=== PATIENT | male | born 1980 | race Caucasian/White ===

== ENCOUNTER 2017-01-30 04:11 | Emergency (ER) | payer OTHER, MEDICAID ==
[~2017-01-30] VITALS: Ht 170.2 cm; Wt 75.0 kg
[2017-01-30 04:11] VITALS: BP 141/94
== END 2017-01-30 04:24 | disposition left against medical advice (07) ==
LOC: ER 04:11
DX: R07.81 Pleurodynia (principal); Z53.21 Procedure and treatment not carried out due to patient leaving prior to being seen by health care provider

== ENCOUNTER 2020-08-13 20:38 | Emergency (ER) | payer MEDICARE, MEDICAID ==
[~2020-08-13] VITALS: Ht 170.2 cm; Wt 70.0 kg
[2020-08-13] MEDS ORDERED: TRAMADOL 50MG TABLET PO ONE (21:15)
[2020-08-13] MEDS ORDERED: IBUP-2029 MT (21:52)
[2020-08-13 22:27] VITALS: BP 135/76
== END 2020-08-13 22:46 | disposition home or self-care (01) ==
LOC: ER 20:38
DX: M25.532 Pain in left wrist (principal); J45.909 Unspecified asthma, uncomplicated; I10 Essential (primary) hypertension; Z86.59 Personal history of other mental and behavioral disorders
CPT/HCPCS: 29125; 73110; 99283

== ENCOUNTER 2022-02-01 13:12 | Emergency (ER) | payer MEDICARE, MEDICAID ==
[~2022-02-01] VITALS: Ht 170.2 cm; Wt 77.0 kg
[~2022-02-01 13:12] MED LIST: IBUP-2029 MT
[2022-02-01 13:18] VITALS: BP 124/69
== END 2022-02-01 14:47 | disposition left against medical advice (07) ==
LOC: ER 13:12
DX: Z53.21 Procedure and treatment not carried out due to patient leaving prior to being seen by health care provider (principal)

== ENCOUNTER 2022-06-15 18:31 | Emergency (ER) | payer MEDICARE, OTHER ==
[~2022-06-15] VITALS: Ht 170.2 cm; Wt 70.0 kg
[2022-06-15 18:33] VITALS: BP 149/102
[2022-06-15] MEDS ORDERED: DIVALPROEX SODIUM 250MG ER TABLET PO SCH (19:30)
[2022-06-15 19:53] LABS: BASOPHILS % 0.5 % (0.0-2.0); EOSINOPHILS % 4.5 % (0.0-5.0); HEMATOCRIT. 43.6 % (42.0-52.0); HEMOGLOBIN. 14.9 g/dL (14.0-18.0); LYMPHOCYTES % 27.6 % (20.0-50.0); MEAN CORPUSCULAR VOLUME 90.5 fL (80.0-94.0); MEAN PLATELET VOLUME 8.7 fl (7.4-10.4); MONOCYTES % 8.3 % (2.0-8.0); NEUTROPHILS % 59.1 % (40.0-76.0); PLATELET 243 x1000/uL (130-400); RED BLOOD CELL COUNT 4.82 mill/uL (4.7-6.1); RED CELL DISTRIBUTION WIDTH 13.6 % (11.6-14.6)
[2022-06-15 19:57] LABS: CHLORIDE 112 mEq/L (98-107)
[2022-06-15 20:04] LABS: CREATINE KINASE 108 IU/L (39-308); ETHANOL BLOOD < 10 mg/dL
[2022-06-15] MEDS ORDERED: DIVALPROEX SODIUM 500MG ER TABLET PO NR (21:15)
[2022-06-15] MEDS ORDERED: DIVALPROEX SODIUM 250MG ER TABLET PO NR (21:15)
== END 2022-06-15 21:53 | disposition home or self-care (01) ==
LOC: ER 18:31
DX: G40.909 Epilepsy, unspecified, not intractable, without status epilepticus (principal); I10 Essential (primary) hypertension; J45.909 Unspecified asthma, uncomplicated
CPT/HCPCS: 36415; 80053; 80185; 80320; 82550; 85025; 93005; 99284; G0480

== ENCOUNTER 2023-10-04 15:55 | Emergency (ER) | payer MEDICARE, OTHER ==
[~2023-10-04] VITALS: Ht 170.2 cm; Wt 75.0 kg
[2023-10-04 15:58] VITALS: O2SAT 98
[2023-10-04 17:02] LABS: BASOPHILS % 0.3 % (0.0-2.0); EOSINOPHILS % 0.9 % (0.0-5.0); HEMATOCRIT. 44.9 % (42.0-52.0); HEMOGLOBIN. 15.2 g/dL (14.0-18.0); LYMPHOCYTES % 21.9 % (20.0-50.0); MEAN CORPUSCULAR HEMOGLOBIN 30.9 pg (28.0-32.0); MEAN CORPUSCULAR HGB CONC 33.9 g/dL (31.0-37.0); MEAN CORPUSCULAR VOLUME 91.2 fL (80.0-94.0); MEAN PLATELET VOLUME 8.5 fl (7.4-10.4); MONOCYTES % 8.4 % (2.0-8.0); NEUTROPHILS % 68.5 % (40.0-76.0); PLATELET 278 x1000/uL (130-400); RED BLOOD CELL COUNT 4.92 mill/uL (4.7-6.1); RED CELL DISTRIBUTION WIDTH 13.8 % (11.6-14.6)
[2023-10-04 17:07] LABS: CHLORIDE 105 mEq/L (98-107); POTASSIUM 3.9 mEq/L (3.5-5.1); SODIUM 136 mEq/L (136-145)
[2023-10-04 17:08] LABS: CARBON DIOXIDE 26 mEq/L (21-32)
[2023-10-04 17:14] LABS: CREATININE 0.6 mg/dL (0.6-1.3); GLUCOSE 93 mg/dL (70-105); UREA NITROGEN BLOOD 11 mg/dL (9-23)
[2023-10-04 19:05] LABS: TROPONIN I HIGH SENSITIVITY < 4 ng/L (3.0-53)
[2023-10-04] MEDS ORDERED: MECL-299 MT (19:23)
[2023-10-04 20:04] VITALS: BP 132/73; PULSE 74; RESP 16; TEMP 98.7
== END 2023-10-04 20:06 | disposition home or self-care (01) ==
LOC: ER 15:55
DX: R42 Dizziness and giddiness (principal); J45.909 Unspecified asthma, uncomplicated; I10 Essential (primary) hypertension; Z72.0 Tobacco use
CPT/HCPCS: 36415; 71045; 80048; 83880; 84484; 85025; 93005; 99285